=== PATIENT | female | born 1940 | race African-American/Black ===

== ENCOUNTER 2017-04-13 13:36 | Inpatient (IN) | payer MEDICARE, MEDICAID ==
[~2017-04-13] VITALS: Ht 162.6 cm; Wt 171.7 kg
[~2017-04-13 13:36] MED LIST: ACET80TA20; DOCU250C19; HYDR12.529; NIFE90TA47; OMEP20CA10; SIMV20TA2; VALS80TA2; ZOLP10TA2; [UNRECOGNIZED DRUG - CODE]
[2017-04-13] MEDS ORDERED: METHYLPREDNISOLONE SOD SUCC 125 MG/2 ML VIAL IV STA (13:57)
[2017-04-13] MEDS ORDERED: IPRATROPIUM BROMIDE (0.02%) 0.5MG/2.5ML NEB HHN STA (13:57)
[2017-04-13] MEDS ORDERED: ALBUTEROL (0.083%) 2.5MG/3ML NEB HHN STA (13:57)
[2017-04-13] MEDS ORDERED: ALBUTEROL (0.5%) 2.5MG/0.5ML NEB HHN ONE (14:14)
[2017-04-13] MEDS ORDERED: ALBUTEROL (0.083%) 2.5MG/3ML NEB ONE (14:14)
[2017-04-13] MEDS ORDERED: IPRATROPIUM BROMIDE (0.02%) 0.5MG/2.5ML NEB ONE (14:15)
[2017-04-13 14:24] LABS: BASOPHILS % 0.8 % (0.0-2.0); HEMATOCRIT. 31.6 % (36.0-48.0); HEMOGLOBIN. 10.4 g/dL (12.0-16.0); LYMPHOCYTES % 15.4 % (20.0-50.0); MEAN CORPUSCULAR HEMOGLOBIN 29.7 pg (28.0-32.0); MEAN CORPUSCULAR VOLUME 90.3 fL (81.0-99.0); MEAN PLATELET VOLUME 8.9 fl (7.4-10.4); MONOCYTES % 4.2 % (2.0-8.0); NEUTROPHILS % 78.6 % (40.0-76.0); PLATELET 175 x1000/uL (130-400); RED CELL DISTRIBUTION WIDTH 14.6 % (11.6-14.6)
[2017-04-13 14:32] LABS: INR 1.1; PROTHROMBIN TIME 11.4 sec (9.4-11.6)
[2017-04-13 14:42] LABS: CARBON DIOXIDE 29 mEq/L (21-32); CHLORIDE 105 mEq/L (98-107); TROPONIN I < 0.02 ng/mL (0.00-0.04)
[2017-04-13] MEDS ORDERED: FUROSEMIDE 40MG/4ML VIAL IVP ONE (16:15)
[2017-04-13] MEDS ORDERED: DIPHENHYDRAMINE 50MG/ML VIAL IV PRN (17:30)
[2017-04-13] MEDS ORDERED: MORPHINE SULFATE 2 MG/ML CPJ (NOT FOR IM USE) IV PRN (17:30)
[2017-04-13] MEDS ORDERED: CLONIDINE 0.1MG TABLET PO PRN (17:30)
[2017-04-13] MEDS ORDERED: MAGNESIUM/ALUMINUM HYDROXIDE/SIMETHICONE 30ML UDC PO PRN (17:30)
[2017-04-13] MEDS ORDERED: IPRATROPIUM/ALBUTEROL 0.5-3(2.5)MG/3ML NEB INH PRN (17:30)
[2017-04-13] MEDS ORDERED: ONDANSETRON HCL 4MG/2ML VIAL IV PRN (17:30)
[2017-04-13] MEDS ORDERED: GUAIFENESIN 200MG/10ML SUGAR FREE UDC PO PRN (17:30)
[2017-04-13] MEDS ORDERED: DOCUSATE SODIUM 100MG CAPSULE PO PRN (17:30)
[2017-04-13] MEDS ORDERED: LORAZEPAM 0.5MG TABLET PO PRN (17:30)
[2017-04-13] MEDS ORDERED: TRAMADOL 50MG TABLET PO PRN (17:30)
[2017-04-13] MEDS ORDERED: ENOXAPARIN 40MG/0.4ML SYR SUBCUT SCH (17:30)
[2017-04-13] MEDS ORDERED: NITROGLYCERIN 0.4MG TABLET SL SL PRN (17:30)
[2017-04-13 20:00] VITALS: BP 150/70
[2017-04-13 20:22] LABS: TOTAL IRON BINDING CAPACITY 353 ug/dL (250-450)
[2017-04-13] MEDS ORDERED: NA PHOS,M-B/NA PHOS,DI-BA ENEMA 118ML PR PRN (20:30)
[2017-04-13] MEDS: FAMOTIDINE 20MG/2ML VIAL IV SCH (21:28)
[2017-04-13] MEDS: FUROSEMIDE 40MG/4ML VIAL IVP SCH (21:28)
[2017-04-13] MEDS: ENOXAPARIN 40MG/0.4ML SYR SUBCUT SCH (21:29)
[2017-04-13] MEDS: GUAIFENESIN/DM 600MG/30MG ER TAB 12HR PO SCH (21:30)
[2017-04-13] MEDS: SPIRONOLACTONE 25MG TABLET PO SCH (21:30)
[2017-04-13] MEDS: CARVEDILOL 3.125 MG TABLET PO SCH (21:30)
[2017-04-13 21:58] LABS: VITAMIN B12 SERUM > 2000 pg/mL (211-911)
[2017-04-13 22:00] VITALS: BP 143/73
[2017-04-13] MEDS: ZOLPIDEM TARTRATE 5MG TABLET PO PRN (23:26)
[2017-04-14] VITALS (11 sets, daily range): BP systolic 105–157; BP diastolic 53–80
[2017-04-14 00:22] LABS: CLARITY URINE CLEAR (CLEAR); COLOR URINE YELLOW (YELLOW); KETONES URINE NEGATIVE (NEGATIVE); LEUKOCYTE ESTERASE URINE TRACE (NEGATIVE); NITRITE URINE POSITIVE (NEGATIVE); OCCULT BLOOD URINE TRACE (NEGATIVE); PROTEIN URINE 2+ (NEGATIVE); SPECIFIC GRAVITY URINE 1.012 (1.005-1.030); UROBILINOGEN URINE 0.2 E.U./dL (0.2-1.0)
[2017-04-14 00:40] LABS: CREATINE KINASE 86 IU/L (26-192); CREATINE KINASE MB FRACTION 1.6 ng/mL (0.5-3.6)
[2017-04-14 00:47] LABS: TROPONIN I < 0.02 ng/mL (0.00-0.04)
[2017-04-14 01:07] LABS: *AMPHETAMINES SCREEN URINE NEGATIVE (NEGATIVE); *BARBITURATES SCREEN URINE NEGATIVE (NEGATIVE); *BENZODIAZEPINES SCREEN URINE NEGATIVE (NEGATIVE); *COCAINE SCREEN URINE NEGATIVE (NEGATIVE); CANNABINOID URINE SCREEN NEGATIVE (NEGATIVE); METHADONE URINE SCREEN NEGATIVE (NEGATIVE); OPIATES URINE SCREEN PRESUMTIVE POSITIVE (NEGATIVE); PHENCYCLIDINE URINE SCREEN NEGATIVE (NEGATIVE)
[2017-04-14] MEDS: CARVEDILOL 3.125 MG TABLET PO SCH ×2 (06:14→17:31)
[2017-04-14 08:53] LABS: CREATINE KINASE 107 IU/L (26-192); CREATINE KINASE MB FRACTION 1.7 ng/mL (0.5-3.6); TROPONIN I <0.01 ng/mL ng/mL (0.00-0.04)
[2017-04-14] MEDS: ENOXAPARIN 40MG/0.4ML SYR SUBCUT SCH ×2 (09:40→21:05)
[2017-04-14] MEDS: FAMOTIDINE 20MG/2ML VIAL IV SCH ×2 (09:40→21:05)
[2017-04-14] MEDS: FUROSEMIDE 40MG/4ML VIAL IVP SCH (09:40)
[2017-04-14] MEDS: ASPIRIN 325MG EC TABLET PO SCH (09:40)
[2017-04-14] MEDS: SPIRONOLACTONE 25MG TABLET PO SCH ×2 (09:41→21:05)
[2017-04-14] MEDS: GUAIFENESIN/DM 600MG/30MG ER TAB 12HR PO SCH ×2 (09:41→21:05)
[2017-04-14] MEDS: HYDROCODONE/ACETAMINOPHEN 10/325MG TABLET PO PRN ×2 (11:54→21:05)
[2017-04-14] MEDS: ACETAMINOPHEN 325MG TABLET PO PRN (14:20)
[2017-04-14] MEDS: IPRATROPIUM/ALBUTEROL 0.5-3(2.5)MG/3ML NEB INH SCH (21:05)
[2017-04-14 21:53] LABS: BG BASE EXCESS 1.7 mmol/L (-2.0-2.0); BG CARBOXYHEMOGLOBIN 0.3 % (0.5-1.5); BG DEOXYHEMOGLOBIN 3.8 % (0.0-5.0); BG FRACTION INSPIRED OXYGEN 28; BG HCO3 ACT 27.5 mmol/L (22.0-26.0); BG METHEMOGLOBIN 0.4 % (0.0-1.5); BG OXYGEN SATURATION 96.2 % (92.0-98.5); BG OXYHEMOGLOBIN 95.5 % (94.0-97.0); BG PCO2 48.5 mmHg (35.0-45.0); BG PH 7.371 (7.350-7.450); BG PO2 80.7 mmHg (75.0-100.0); BG SAMPLE SITE LEFT RADIAL; BG TOTAL HEMOGLOBIN 10.3 g/dL (12.0-18.0); BG VENT MODE NASAL CANNULA
[2017-04-14] MEDS: ZOLPIDEM TARTRATE 5MG TABLET PO PRN (23:23)
[2017-04-15] VITALS (11 sets, daily range): BP systolic 92–153; BP diastolic 44–79
[2017-04-15] MEDS ORDERED: IPRATROPIUM/ALBUTEROL 0.5-3(2.5)MG/3ML NEB HHN SCH
[2017-04-15] MEDS: IPRATROPIUM/ALBUTEROL 0.5-3(2.5)MG/3ML NEB INH SCH ×4 (01:05→21:03)
[2017-04-15] MEDS: CARVEDILOL 3.125 MG TABLET PO SCH ×2 (05:51→18:16)
[2017-04-15 06:19] LABS: BASOPHILS % 0.2 % (0.0-2.0); EOSINOPHILS % 0.4 % (0.0-5.0); HEMATOCRIT. 27.9 % (36.0-48.0); HEMOGLOBIN. 9.1 g/dL (12.0-16.0); LYMPHOCYTES % 22.6 % (20.0-50.0); MEAN CORPUSCULAR HEMOGLOBIN 29.7 pg (28.0-32.0); MEAN PLATELET VOLUME 10.1 fl (7.4-10.4); MONOCYTES % 8.3 % (2.0-8.0); NEUTROPHILS % 68.5 % (40.0-76.0); PLATELET 166 x1000/uL (130-400); RED BLOOD CELL COUNT 3.06 mill/uL (4.2-5.4); RED CELL DISTRIBUTION WIDTH 14.8 % (11.6-14.6)
[2017-04-15 07:20] LABS: PHOSPHORUS 3.4 mg/dL (2.5-4.9)
[2017-04-15] MEDS: GUAIFENESIN/DM 600MG/30MG ER TAB 12HR PO SCH ×2 (09:14→22:01)
[2017-04-15] MEDS: SPIRONOLACTONE 25MG TABLET PO SCH ×2 (09:16→22:01)
[2017-04-15] MEDS: ACETAMINOPHEN 325MG TABLET PO PRN ×2 (09:16→15:17)
[2017-04-15] MEDS: ASPIRIN 325MG EC TABLET PO SCH (09:16)
[2017-04-15] MEDS: FAMOTIDINE 20MG/2ML VIAL IV SCH (09:16)
[2017-04-15] MEDS: ENOXAPARIN 40MG/0.4ML SYR SUBCUT SCH ×2 (09:16→22:07)
[2017-04-15] MEDS ORDERED: VENOFER IV SCH (09:45)
[2017-04-15] MEDS: IRON SUCROSE COMPLEX 100 MG/5 ML ML IV SCH (14:52)
[2017-04-15] MEDS: HYDROCODONE/ACETAMINOPHEN 10/325MG TABLET PO PRN (22:15)
[2017-04-16] VITALS (11 sets, daily range): BP systolic 92–147; BP diastolic 49–81
[2017-04-16] MEDS: ZOLPIDEM TARTRATE 5MG TABLET PO PRN ×2 (00:30→22:42)
[2017-04-16] MEDS: FAMOTIDINE 20MG/2ML VIAL IV SCH ×3 (00:30→20:51)
[2017-04-16] MEDS: IPRATROPIUM/ALBUTEROL 0.5-3(2.5)MG/3ML NEB INH SCH ×4 (00:42→20:57)
[2017-04-16] MEDS: CARVEDILOL 3.125 MG TABLET PO SCH ×2 (06:40→18:58)
[2017-04-16 07:08] LABS: PHOSPHORUS 3.2 mg/dL (2.5-4.9)
[2017-04-16 07:32] LABS: BASOPHILS % 0.3 % (0.0-2.0); EOSINOPHILS % 1.3 % (0.0-5.0); HEMATOCRIT. 28.5 % (36.0-48.0); HEMOGLOBIN. 9.4 g/dL (12.0-16.0); LYMPHOCYTES % 24.3 % (20.0-50.0); MEAN CORPUSCULAR HEMOGLOBIN 29.9 pg (28.0-32.0); MEAN CORPUSCULAR VOLUME 90.3 fL (81.0-99.0); MEAN PLATELET VOLUME 10.1 fl (7.4-10.4); MONOCYTES % 9.5 % (2.0-8.0); NEUTROPHILS % 64.6 % (40.0-76.0); PLATELET 167 x1000/uL (130-400); RED BLOOD CELL COUNT 3.15 mill/uL (4.2-5.4); RED CELL DISTRIBUTION WIDTH 14.4 % (11.6-14.6)
[2017-04-16] MEDS: ASPIRIN 325MG EC TABLET PO SCH (09:39)
[2017-04-16] MEDS: SPIRONOLACTONE 25MG TABLET PO SCH ×2 (09:40→20:54)
[2017-04-16] MEDS: ENOXAPARIN 40MG/0.4ML SYR SUBCUT SCH ×2 (09:40→20:54)
[2017-04-16] MEDS: GUAIFENESIN/DM 600MG/30MG ER TAB 12HR PO SCH ×2 (09:40→20:51)
[2017-04-16] MEDS: IRON SUCROSE COMPLEX 100 MG/5 ML ML IV SCH (10:01)
[2017-04-16 10:36] LABS: BG BASE EXCESS 0.5 mmol/L (-2.0-2.0); BG CARBOXYHEMOGLOBIN 0.1 % (0.5-1.5); BG FRACTION INSPIRED OXYGEN 21; BG HCO3 ACT 27.5 mmol/L (22.0-26.0); BG METHEMOGLOBIN 0.2 % (0.0-1.5); BG OXYHEMOGLOBIN 86.7 % (94.0-97.0); BG PCO2 56.8 mmHg (35.0-45.0); BG PH 7.303 (7.350-7.450); BG PO2 53.3 mmHg (75.0-100.0); BG SAMPLE SITE RIGHT RADIAL; BG TOTAL HEMOGLOBIN 10.2 g/dL (12.0-18.0); BG VENT MODE ROOM AIR
[2017-04-16] MEDS: HYDROCODONE/ACETAMINOPHEN 10/325MG TABLET PO PRN ×2 (11:43→22:42)
[2017-04-16] MEDS: ACETAMINOPHEN 325MG TABLET PO PRN (16:21)
[2017-04-17] VITALS (9 sets, daily range): BP systolic 109–156; BP diastolic 49–99
[2017-04-17] MEDS: IPRATROPIUM/ALBUTEROL 0.5-3(2.5)MG/3ML NEB INH SCH ×2 (02:33→09:04)
[2017-04-17] MEDS: CARVEDILOL 3.125 MG TABLET PO SCH (06:32)
[2017-04-17] MEDS: ASPIRIN 325MG EC TABLET PO SCH (09:59)
[2017-04-17] MEDS: SPIRONOLACTONE 25MG TABLET PO SCH (10:02)
[2017-04-17] MEDS: ACETAMINOPHEN 325MG TABLET PO PRN (10:02)
[2017-04-17] MEDS: FAMOTIDINE 20MG/2ML VIAL IV SCH (10:02)
[2017-04-17] MEDS: ENOXAPARIN 40MG/0.4ML SYR SUBCUT SCH (10:03)
[2017-04-17] MEDS: GUAIFENESIN/DM 600MG/30MG ER TAB 12HR PO SCH (10:09)
[2017-04-17] MEDS: IRON SUCROSE COMPLEX 100 MG/5 ML ML IV SCH (11:00)
[2017-04-17] MEDS ORDERED: AMLODIPINE 2.5MG TABLET PO SCH (12:30)
[2017-04-17 13:09] LABS: *CREATININE RANDOM URINE 102.7 mg/dL (Not Estab.); MICROALBUMIN RANDOM URINE 582.4 ug/mL (Not Estab.)
== END 2017-04-17 17:21 | disposition home or self-care (01) | DRG 291 ==
LOC: ER 13:54 → 3WST 16:34 → ENRESERV 17:02 → SUPCPDRO 17:08 → 3WST 22:36
PROVIDERS: ADMIT Internal Medicine; ATTEND Internal Medicine
PROC: 5A09357 Assistance with Respiratory Ventilation, Less than 24 Consecutive Hours, Continuous Positive Airway Pressure (ICD-10-PCS; principal; 2017-04-13)
PROC: 5A09457 Assistance with Respiratory Ventilation, 24-96 Consecutive Hours, Continuous Positive Airway Pressure (ICD-10-PCS; 2017-04-15)
DX: I13.0 Hypertensive heart and chronic kidney disease with heart failure and stage 1 through stage 4 chronic kidney disease, or unspecified chronic kidney disease (principal); J96.22 Acute and chronic respiratory failure with hypercapnia; E44.0 Moderate protein-calorie malnutrition; G61.0 Guillain-Barre syndrome; I50.43 Acute on chronic combined systolic (congestive) and diastolic (congestive) heart failure; N17.9 Acute kidney failure, unspecified; E66.2 Morbid (severe) obesity with alveolar hypoventilation; Z68.44 Body mass index [BMI] 60.0-69.9, adult; D63.1 Anemia in chronic kidney disease; N18.3 Chronic kidney disease, stage 3 (moderate); D50.9 Iron deficiency anemia, unspecified; R79.89 Other specified abnormal findings of blood chemistry; R60.0 Localized edema; F32.9 Major depressive disorder, single episode, unspecified; E78.5 Hyperlipidemia, unspecified; J44.9 Chronic obstructive pulmonary disease, unspecified; M10.9 Gout, unspecified; M19.90 Unspecified osteoarthritis, unspecified site; Z74.01 Bed confinement status; Z79.82 Long term (current) use of aspirin; Z79.899 Other long term (current) drug therapy; Z86.718 Personal history of other venous thrombosis and embolism; Z87.11 Personal history of peptic ulcer disease; Z90.710 Acquired absence of both cervix and uterus; Z88.0 Allergy status to penicillin; Z91.81 History of falling
CPT/HCPCS: 36415; 36600; 71010; 76770; 80048; 80053; 80061; 80305; 81001; 82043; 82375; 82550; 82553; 82570; 82607; 82746; 82805; 83036; 83540; 83550; 83735; 83880; 84100; 84300; 84484; 85025; 85610; 87077; 87086; 87186; 93005; 93306; 94640; 94660; 94664; 96374; 96375; 99291; C1893; J1650; J1940; J2405; J2930; J3490; J7030; J7611; J7620